=== PATIENT | female | born 1975 | race Caucasian/White ===

== ENCOUNTER 2021-01-24 02:02 | Inpatient (IN) | payer OTHER, SELFPAY ==
[2021-01-24 02:02] VITALS: BP 136/95; PULSE 97; RESP 15; TEMP 37; O2SAT 95
--- NOTE | 2021-01-24 02:58 | PC.NURSE ---
Pt presents to [facility] A[facility]Ox[facility]. Pt states that she recently traveled via [email or web address] to [facility] from [facility] 1-2 weeks ago to visit a friend. Pt states that friend had moved to [place] and pt has been staying in a motel in [place] since and has no way to get back to [place]. Pt states that she lives by herself in an apartment in [place] and a Home Health facility named [facility] checks on her frequently. Pt states her mother and aunt would be the first to notify if needed, both live in [place]. Pt states she has 3 adult children and is . Pt states that she is a social smoker and denies use of alcohol or illegal drugs. Pt states the only medication she takes is an advil with dinner . Pt denied SI/HI or any type of hallucinations. When asked why she was seen in the [place] ER, pt stated it was for stomach issues and headache. Pt states that she does not have any history of psych issues, nor any hst of drug/alcohol abuse. Pt stated PCP is Dr. Granados in [facility]. When asked if she has been a pt in any psychiatric facility, pt stated that she has seen a psychiatrist, then stated you don't need to write that down . Pt would not give anymore information on the psychiatrist or why she seen one. Pt then became short with her answers and stated lets get through just the questions on that sheet, ok?
[2021-01-24 03:16] VITALS: BMI 34.3
--- NOTE | 2021-01-24 03:32 | PC.NURSE ---
Pt denies use of or family hst of drugs or alcohol use.
[2021-01-24] MEDS: ibuprofen 600 mg Tablet PO (03:38)
--- NOTE | 2021-01-24 03:55 | PC.NURSE ---
Pt may be poor historian or is withholding information.
[2021-01-24 06:00] VITALS: BP 146/92; PULSE 60; RESP 16; TEMP 37.2; O2SAT 94
[2021-01-24] MEDS: risperiDONE 1 mg Tablet PO (09:19)
[2021-01-24] MEDS: famotidine 20 mg Tablet PO (09:19)
--- NOTE | 2021-01-24 12:55 | P.HP_ITS ---
Providers/Chief Complaint Admitting Physician: Mc Braxton MD Chief Complaint: TXFR FROM [facility] HPI NPU History of Present Illness NUZHAT PORTILLO is a 45 year old female who presented to outside hospital with reports of hallucinations, confusion and without clarity of thought. She was placed on a 96-hour hold there secondary to their concerns about her safety and ability to function. She was transferred to [facility] and then ultimately was admitted to the neuropsychiatric unit for definitive treatment of those concerns. Here she presents as a fairly poor historian making quite difficult to figure out exactly what the challenges. She denies inpatient hospitalization reports that she maybe had some treatment with a mood stabilizer and trazodone at some point, but reports that for years and years she has had a therapist that she sees once or twice monthly and I can see to do more if she is having challenging situations. But she could never really articulate what some of the challenging situations might have been. She reports walking cigarettes occasionally, not drinking alcohol or using marijuana or any other illicit drugs. She denies ever going to rehab or having a DUI. She reports that she is from the [facility] and that she has come to this area because she was leaving some challenging situations in [place]. However at some point 13 May after he talked about returning to that area and then seem to change her mind again by the time we saw her. She could not really articulate what issues she had and so we started talking about possible living arrangements we discussed the fact that that is not primarily what we do in getting people housing. She was seemingly interested in possible discharge wondering when she will be able to go but when I asked her what she would do I discharged her that she could do was safe to go to a motel and then hopefully we can find her some alternative. So it is on clear whether she is baseline limited or not. She eventually reported that there was some traumatic relationships with other partners back in the vascular but she did not go into any detail. Psychiatric history: As above. Substance abuse history: As above. Family history: Patient denies mental health or addiction issues on either side of the family and denies suicide attempts or completions in the family. Developmental history: She denies any problems with her mother's with her and denies any problems with her or delivery, reports he learned to walk and talk and met her developmental milestones on time, and reports that when she started school and threw out her schooling she did not need speech therapy, learning support, emotional support or special education classes. Psychosocial history: Reports her parents were together until she was about 6 years old and reports that there is an older brother and sister who are products of that same union. Her mother did not have any other children and her father had 2 other children. She reports that her childhood was nice and she denies any emotional, physical or sexual use. She reports that she graduated from high school and attended some college. She reports that she denied attracted to anyone male or female at this point but that her longest relationship was a couple years and it was a male. Is been 1 time and once, has 3 daughters ages 24, 22 and 7. Her youngest daughter is in foster care or adopted and her older daughters are at organ at this time. He is never in the and she endorses that Naz[facility] marlena. 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 She reports that she has a place back in [place] but currently does not have a place to stay here. Legal history: She denies ever being in fdc or having any legal peril. Medical history: She denied any current or pressing issues but reports she went to the hospital secondary to chest pain and stomach discomfort. Meds NPU Home Medications Medication Instructions Recorded Confirmed Last Taken Type famotidine [Pepcid] 20 mg PO DAILY 01/24/21 01/24/21 Unknown History risperidone 1 mg PO DAILY 01/24/21 01/24/21 Unknown History trazodone 150 mg PO BEDTIME 01/24/21 01/24/21 Unknown History Allergies Allergy/AdvReac Type Severity Reaction Status Date / Time No Known Drug Allergies Allergy Unknown Verified 01/24/21 03:23 Mental Status Exam MSE Comments: This is an obese white female with limited grooming and adequate eye contact in hospital scrubs. No abnormal movements except for mild psychomotor retardation. Cooperative with exam in no acute distress. Speech was decreased rate and volume. Mood described as good, affect confused. Thought process linear. Thought content: Patient denied suicidal or homicidal ideation, there were no delusions reported or noted, she denies any auditory or visual hallucinations. Attention and concentration appeared intact and memory was limited but none were formally tested. She is alert and oriented x3. Insight and judgment appear limited, impulse control appears limited and intellectual ability appears limited versus impaired. Vitals/I&O/Wt Last Vital Signs Temp 99 F 01/24/21 06:00 Pulse 60 01/24/21 06:00 Resp 16 01/24/21 06:00 BP 146/92 01/24/21 06:00 Pulse Ox 94 01/24/21 06:00 Weight last 48 hrs Weight 90.718 kg A&P Assessment and plan (1) Adjustment disorder with mixed disturbance of emotions and conduct: Status: Acute (2) Partner relational problem: Status: Acute (3) Borderline intellectual functioning: Status: Acute Additional A&P Information This is a 45-year-old white female who presents reporting that she is trying to find a place to stay due to rough situations back home that she is not very clear about and is a poor historian and explaining and denies significant inpatient treatment but has had therapy for some time. 1. Continue current medication. 2. Continue every 15 minute checks for safety. 3. Encourage individual, group and milieu therapies. 4. Evaluate for possible substance abuse issues. Involuntary Hold Information 96 Hour Hold: 96 Hour Involuntary Admission: No Attestations NPU Medical Necessity Statement*: Inpatient hospitalization is medically necessary and the clinically appropriate intervention at this time. We will monitor medications and make changes as indicated. Patient will be in the hospital for over two midnights. Likely length of stay 3 to 5 days. It is unclear what her plan will be and so she may leave sooner if we can understand her situation and arrange the logistics. Coding Level of Care Code Acute Digital Cartographer for Gladis Fwd Diagnoses Adjustment disorder with mixed disturbance of emotions and conduct F43.25 Partner relational problem Z63.0 Borderline intellectual functioning R41.83
[2021-01-24] MEDS: ondansetron 4 MG Tablet PO (13:21)
[2021-01-24] MEDS: acetaminophen 325 mg Tablet 650 MG PO ×2 (13:22→22:04)
[2021-01-24 14:00] VITALS: BP 135/99; PULSE 88; RESP 17; TEMP 36.6; O2SAT 95
[2021-01-24] MEDS: trazodone 150 mg Tablet PO (21:06)
[2021-01-24 22:00] VITALS: BP 131/97; BP 135/99; PULSE 100; PULSE 88; RESP 15; RESP 17; TEMP 36.6; TEMP 36.7; O2SAT 90; O2SAT 95
[2021-01-25] MEDS: ibuprofen 600 mg Tablet PO (00:58)
[2021-01-25] MEDS: acetaminophen 325 mg Tablet 650 MG PO (03:13)
[2021-01-25 06:00] VITALS: BP 108/73; PULSE 92; RESP 19; TEMP 37.1; O2SAT 94
[2021-01-25] MEDS: risperiDONE 1 mg Tablet PO (09:23)
[2021-01-25] MEDS: famotidine 20 mg Tablet PO (09:24)
--- NOTE | 2021-01-25 11:31 | PM.NDC ---
Diagnoses at Discharge Discharge Diagnosis (1) Adjustment disorder with mixed disturbance of emotions and conduct: Status: Acute (2) Partner relational problem: Status: Acute (3) Borderline intellectual functioning: Status: Acute Reason for Visit Reason for Visit: TXFR FROM [facility] Brief History: History of Present Illness NUZHAT PORTILLO is a 45 year old female who presented to outside hospital with reports of hallucinations, confusion and without clarity of thought. She was placed on a 96-hour hold there secondary to their concerns about her safety and ability to function. She was transferred to [facility] and then ultimately was admitted to the neuropsychiatric unit for definitive treatment of those concerns. Here she presents as a fairly poor historian making quite difficult to figure out exactly what the challenges. She denies inpatient hospitalization reports that she maybe had some treatment with a mood stabilizer and trazodone at some point, but reports that for years and years she has had a therapist that she sees once or twice monthly and I can see to do more if she is having challenging situations. But she could never really articulate what some of the challenging situations might have been. She reports walking cigarettes occasionally, not drinking alcohol or using marijuana or any other illicit drugs. She denies ever going to rehab or having a DUI. She reports that she is from the [facility] and that she has come to this area because she was leaving some challenging situations in [place]. However at some point 13 May after he talked about returning to that area and then seem to change her mind again by the time we saw her. She could not really articulate what issues she had and so we started talking about possible living arrangements we discussed the fact that that is not primarily what we do in getting people housing. She was seemingly interested in possible discharge wondering when she will be able to go but when I asked her what she would do I discharged her that she could do was safe to go to a motel and then hopefully we can find her some alternative. So it is on clear whether she is baseline limited or not. She eventually reported that there was some traumatic relationships with other partners back in the vascular but she did not go into any detail. Psychiatric history: As above. Substance abuse history: As above. Family history: Patient denies mental health or addiction issues on either side of the family and denies suicide attempts or completions in the family. Developmental history: She denies any problems with her mother's with her and denies any problems with her or delivery, reports he learned to walk and talk and met her developmental milestones on time, and reports that when she started school and threw out her schooling she did not need speech therapy, learning support, emotional support or special education classes. Psychosocial history: Reports her parents were together until she was about 6 years old and reports that there is an older brother and sister who are products of that same union. Her mother did not have any other children and her father had 2 other children. She reports that her childhood was nice and she denies any emotional, physical or sexual use. She reports that she graduated from high school and attended some college. She reports that she denied attracted to anyone male or female at this point but that her longest relationship was a couple years and it was a male. Is been 1 time and once, has 3 daughters ages 24, 22 and 7. Her youngest daughter is in foster care or adopted and her older daughters are at organ at this time. He is never in the and she endorses that [employer]arene marlena. 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 She reports that she has a place back in [place] but currently does not have a place to stay here. Legal history: She denies [facility] being in [facility] or having any legal peril. Medical history: She denied any current or pressing issues but reports she went to the hospital secondary to chest pain and stomach discomfort. Hospital Course Hospital Course She presented to an outside hospital with concerns of domestic disputes, limited cognitive functioning and lethality. She was transferred to [facility] and ultimately admitted to the neuropsychiatric unit for definitive treatment of those issues. On the unit she slowly acclimated to the individual, group and milieu therapies provided. She worked with the social work team to help address some of her psychosocial stressors that would likely lead to medication. Was clear that her cognitive limitations made it difficult for her to make self-supporting decisions. We did continue previous medications which it is unclear if she had access to prior and helped her identify a viable living situation while she figured out what her next move would be. She was able to contract for safety prior to discharge. During the hospitalization, patient had routine laboratory studies which were within normal limits except for few outliers. Additionally there was a general medical evaluation which was also within normal limits and revealed no new acute processes. Discharge Summary: At the time of discharge, she denied psychosis or lethality. Mood and anxiety were well managed. Patient endorsed a plan to avoid all drugs of abuse and follow-up with the aftercare recommendations of the treatment team. Patient was evaluated and deemed to be absent credible lethality, and had achieved the maximum benefit from an inpatient hospitalization, so was discharged. Involuntary Hold Information 96 Hour Hold: 96 Hour Involuntary Admission: No Mental Status Exam MSE Comments: This is an obese white female with limited grooming and adequate eye contact in hospital scrubs. No abnormal movements except for mild psychomotor retardation. Cooperative with exam in no acute distress. Speech was decreased rate and volume. Mood described as good, affect more euthymic. Thought process linear. Thought content: Patient denied suicidal or homicidal ideation, there were no delusions reported or noted, she denies any auditory or visual hallucinations. Attention and concentration appeared intact and memory was limited but none were formally tested. She is alert and oriented x3. Insight and judgment appear limited, impulse control appears limited and intellectual ability appears limited versus impaired. Discharge Data Vitals: Last Vital Signs Temp 98.8 F 01/25/21 06:00 Pulse 92 01/25/21 06:00 Resp 19 H 01/25/21 06:00 BP 108/73 01/25/21 06:00 Pulse Ox 94 01/25/21 06:00 Discharge Plan Discharge Patient Disposition: Home Condition: Stable Prescriptions: Continued Pepcid 20 mg Tablet 20 mg PO DAILY 30 Days Qty: 30 RF: 1 trazodone 150 mg Tablet 150 mg PO BEDTIME 30 Days Qty: 30 RF: 1 risperidone 1 mg Tablet 1 mg PO DAILY 30 Days Qty: 30 RF: 1 Discharge Orders: Discharge Order (Routine); Ordered 01/25/21 Ordered By: Mc Braxton Discharge Diet: Regular Discharge Activity: Resume usual activity Patient Instructions: Opioid Safety Discharge Attestations NPU Time Spent in Discharge Care*: less than 30 min Specific Discharge Activities: Specific discharge activities: educating patient, discussing with manager of case/social workers/dc planners, documenting/other paperwork and evaluating patient/reviewing data Coding Level of Care Code Acute Chg FW DC note Diagnoses Adjustment disorder with mixed disturbance of emotions and conduct F43.25 Partner relational problem Z63.0 Borderline intellectual functioning R41.83
[2021-01-25 11:45] VITALS: BP 108/73; PULSE 92; RESP 19; TEMP 37.1; O2SAT 94
[2021-01-25 11:49] VITALS: BP 108/73; PULSE 92; RESP 19; TEMP 37.1; O2SAT 94
== END 2021-01-25 13:07 | disposition home or self-care (01) | DRG 882 ==
PROVIDERS: Admitting Provider Psychiatry & Neurology Psychiatry; Visit Provider Psychiatry & Neurology Psychiatry
DX: F43.25 Adjustment disorder with mixed disturbance of emotions and conduct (principal); F17.210 Nicotine dependence, cigarettes, uncomplicated; Z63.0 Problems in relationship with spouse or partner; R41.83 Borderline intellectual functioning
CPT/HCPCS: Q0162